=== PATIENT | female | born 1980 | race Caucasian/White ===

== ENCOUNTER 2017-02-23 12:14 | Outpatient (CLI) | payer OTHER ==
--- NOTE | 2017-02-23 14:18 | RAD ---
PA AND LATERAL CHEST: Date: 02-23-17 History: Unexplained weight loss. Comparison: 09-08-16 FINDINGS: Cardiac silhouette and pulmonary vasculature are within normal limits. The lungs remain clear. There has been no interval change from the prior study. IMPRESSION: No acute cardiopulmonary process. POS: [facility]
--- NOTE | 2017-02-23 14:19 | RAD ---
THREE VIEWS LEFT SHOULDER: Date: 02-23-17 History: Left shoulder pain for two weeks. No known injury. Pain with movement. FINDINGS/IMPRESSION: No evidence of a fracture, dislocation, or other osseous abnormality involving the left shoulder. POS: [facility]
== END 2017-02-23 12:15 | disposition home or self-care (01) ==
LOC: SCSRAD 12:14
PROVIDERS: ATTEND Internal Medicine
DX: M25.512 Pain in left shoulder (principal); R63.4 Abnormal weight loss
CPT/HCPCS: 71020

== ENCOUNTER 2017-03-31 13:10 | Outpatient (CLI) | payer OTHER ==
--- NOTE | 2017-03-31 14:59 | MMO ---
BILATERAL DIGITAL SCREENING MAMMOGRAMS: HISTORY: This 37-year-old female presents for a baseline digital screening mammography. COMPARISON: This is a baseline study. No prior mammograms. This patient's mammogram is interpreted with the assistance of computer-aided detection. The breasts are heterogeneously dense which can obscure small masses. Occasional typically benign ca lcifications in the right breast. No direct or indirect evidence of malignancy. IMPRESSION: BI-RADS category 2, benign findings. Continued routine screening. BIRADS 2: Benign Finding(s) Routine annual screening mammography (for women over age 40) POS: [facility]
--- NOTE | 2017-03-31 15:10 | ULT ---
EXAM: PELVIC ULTRASOUND: HISTORY: Pelvic pain. IUD. Spotting. COMPARISON: None. TECHNIQUE: Transabdominal imaging of the pelvis is performed. Ovaries are interrogated with jackson scale, color f low, Doppler imaging and spectral waveform analysis. Endovaginal imaging of the pelvis is also perfo rmed. FINDINGS: The uterus is identified, without myometrial masses. Uterus measures 4.7 x 7.2 x 3.7 cm. Limited ev aluation of the endometrium. There does appear to be echogenicity within the endometrium suggesting intrauterine device. Less than 1 cm anechoic focus in the right ovary may represent a follicle. Right ovary measures 3.0 x 2.5 x 1.7 cm. The left ovary has a normal echotexture measuring 1.7 x 2.2 x 1.6 cm. No free fluid. OVARIAN DOPPLER: Vascular flow to left and right ovary. IMPRESSION: 1. Sonographic suggestion of an intrauterine device, within the endometrium. 2. Vascular flow to both ovaries. POS: [facility]
== END 2017-03-31 13:11 | disposition home or self-care (01) ==
LOC: SCSMAMMO 13:10
PROVIDERS: ATTEND Internal Medicine
DX: Z12.31 Encounter for screening mammogram for malignant neoplasm of breast (principal); N92.6 Irregular menstruation, unspecified; R10.2 Pelvic and perineal pain; Z80.3 Family history of malignant neoplasm of breast
CPT/HCPCS: 76856; 77067; G0202

== ENCOUNTER 2019-01-10 10:22 | Outpatient (CLI) | payer OTHER ==
--- NOTE | 2019-01-10 10:57 | RAD ---
Frontal and lateral imaging of the thoracic spine: 01/10/2019 COMPARISON: None HISTORY: Severe neck pain with radiation into the left shoulder and upper back FINDINGS: The cervical spine is not assessed on this examination. The thoracic vertebral bodies demon strate normal height and alignment. There is no evidence for a thoracic spine fracture. Mild disc space narrowing and anterior osteophyte formation noted within the thoracic spine at T6-7, T7-8, T8-9 , T9-10, and T10-11. IMPRESSION: No acute osseous abnormality noted within the thoracic spine.
--- NOTE | 2019-01-10 12:32 | RAD ---
CERVICAL SPINE SERIES 3 VIEWS: HISTORY: Severe neck pain radiating to the left shoulder. FINDINGS: The vertebral bodies are normal in height. There is a slight reversal to the normal cervical curve. Minimal anterolisthesis of C3 on C4 may just be related to positioning. There is moderate disk narr owing at C6-7 and slightly less pronounced disk narrowing at the C5-6 level. Facets are in normal al ignment. 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 POS: [facility]
== END 2019-01-10 10:23 | disposition home or self-care (01) ==
LOC: SCSRAD 10:22
PROVIDERS: ATTEND Chiropractor
DX: M53.82 Other specified dorsopathies, cervical region (principal); M54.2 Cervicalgia; M46.92 Unspecified inflammatory spondylopathy, cervical region
CPT/HCPCS: 72040; 72072

== ENCOUNTER 2019-01-13 23:36 | Emergency (ER) | payer OTHER ==
[2019-01-14] MEDS ORDERED: Diazepam 5 MG TAB ONE (00:33)
[2019-01-14] MEDS ORDERED: Morphine 4 MG/ML VIAL ONE (00:41)
[2019-01-14] MEDS ORDERED: methylPREDNISolone Sod Succ/PF 125 MG/2 ML VIAL ONE (00:41)
[2019-01-14] MEDS ORDERED: Ketorolac Tromethamine 30 MG/ML VIAL ONE (00:41)
== END 2019-01-14 01:18 | disposition home or self-care (01) ==
LOC: SCSER 23:36
DX: M54.12 Radiculopathy, cervical region (principal); K21.9 Gastro-esophageal reflux disease without esophagitis; E03.9 Hypothyroidism, unspecified; F41.9 Anxiety disorder, unspecified; Z79.899 Other long term (current) drug therapy
CPT/HCPCS: 96374; 96375; J1885; J2270; J2930

== ENCOUNTER 2025-04-27 13:00 | Outpatient (CLI) | payer BC | END 2025-04-27 13:01 | disposition home or self-care (01) | LOC: SCSRAD 13:00 | PROVIDERS: ATTEND Student in an Organized Health Care Education/Training Program | DX: R07.89 Other chest pain (principal) | CPT/HCPCS: 71046 ==